=== PATIENT | female | born 1950 ===

== ENCOUNTER 2017-09-21 06:28 | Day surgery (SDC) | payer OTHER ==
[~2017-09-21 06:28] MED LIST: HUMULIN 70100 UNIT/1; LIPITOR20 MG; LOSARTAN-HCTZ1 EAC2; VITAMINA D
== END 2017-09-21 14:10 | disposition home or self-care (01) ==
LOC: CIR.AMB 06:28
DX: R15.9 Full incontinence of feces (principal)
CPT/HCPCS: 64590; C1767

== ENCOUNTER 2017-10-05 05:46 | Day surgery (SDC) | payer OTHER | END 2017-10-05 14:00 | disposition home or self-care (01) | LOC: CIR.AMB 05:46 | DX: R15.9 Full incontinence of feces (principal) | CPT/HCPCS: 64590; C1767 ==